=== PATIENT | male | born 1995 | race Caucasian/White ===

== ENCOUNTER 2024-03-06 20:00 | Emergency (ER) | payer MEDICAID, SELFPAY ==
[2024-03-06] VITALS (10 sets, daily range): BP systolic 121–154; BP diastolic 76–88; PULSE 91–119; RESP 16–26; TEMP 36.1–38.3; O2SAT 93–97
--- NOTE | 2024-03-06 20:15 | DI.RAD_ITS ---
Exam(s) XR PORTABLE CHEST AP EXAM: XR PORTABLE CHEST AP CLINICAL HISTORY: cough, fever. TECHNIQUE: 2D digital imaging was performed. COMPARISON: No exams were available for comparison FINDINGS: Single AP portable view. Heart size is upper normal. The mediastinum is not widened. There is significant infiltrate in the right lower lobe posterior basal segment. Left lung is clear. There are no obvious pleural effusions. IMPRESSION: Significant right lower lobe infiltrate. DATA REPOSITORY: RADIATION DOSE DELIVERED:
--- NOTE | 2024-03-06 20:40 | ED.GENADUL_ITS ---
Discharge Plan Disposition Patient Disposition: Home Condition: Stable Discharge Details Clinical Impression: Pneumonia, Hypokalemia Primary Care Provider: Precious,Local ED Provider: Shirley Blakely Home Meds and New Rx's Prescriptions: New amoxicillin 500 mg capsule 1,000 mg PO TID Qty: 56 0RF potassium chloride 20 mEq tablet,ER particles/crystals 20 meq PO DAILY Qty: 7 0RF ondansetron HCl 4 mg tablet 4 mg PO Q8H PRN10 Days Qty: 20 0RF Continued mupirocin 22 GM ointment 1 gm Topical BID Qty: 1 0RF Rx Instructions: 10 days Discharge Instructions Instructions: Hypokalemia, High Potassium Diet, Community-Acquired Pneumonia, Adult (DC) Additional Instructions: Take ibuprofen 600 mg every 8 hours with food for fever control Take Tylenol 500 mg every 4 hours for fever control Take Zofran as needed for nausea and vomiting Stand Alone Forms: Work Release HPI General Date/Time Provider Initiated Documentation: 03/06/24 20:11 . HPI Narrative: This 29-year-old male who presents with fever for the past 36 hours. Patient reports nausea, cough headache, Tmax 103. Has been taking ibuprofen and Tylenol. She denies any urinary symptoms. Denies known sick contacts. Denies illicit drug use. Denies any shortness of breath. Denies tick bites. Denies any arthralgias reports myalgias. Related Data Home Medications ?Medication ?Instructions ?Recorded ?Confirmed mupirocin 2 % topical ointment 1 gm topical BID #1 tube 06/03/16 amoxicillin 500 mg capsule 1,000 mg (2 x 500 mg) PO TID #56 03/06/24 caps ondansetron HCl 4 mg tablet 4 mg PO Q8H PRN 10 days #20 tabs 03/06/24 potassium chloride 20 mEq 20 meq PO DAILY #7 tabs 03/06/24 tablet,extended release(part/cryst) Previous Rx's ?Medication ?Instructions ?Recorded mupirocin 2 % topical ointment 1 gm topical BID #1 tube 06/03/16 amoxicillin 500 mg capsule 1,000 mg (2 x 500 mg) PO TID #56 03/06/24 caps ondansetron HCl 4 mg tablet 4 mg PO Q8H PRN 10 days #20 tabs 03/06/24 potassium chloride 20 mEq 20 meq PO DAILY #7 tabs 03/06/24 tablet,extended release(part/cryst) Allergies Allergy/AdvReac Type Severity Reaction Status Date / Time No Known Allergies Allergy Verified 03/06/24 20:09 General Stated Complaint: Fever DAJUAN: 4 Exam Narrative Exam Narrative: Alert and oriented, no acute distress, pupils equal round reactive to light and accommodation, no meningismus, lungs clear to auscultation, sinus tachycardia, no abdominal tenderness, alert and oriented x 4, no rashes or lesions Course Vital Signs Vital signs: Vital Signs Temperature 38.3 C H 03/06/24 20:04 Pulse 119 H 03/06/24 20:04 Respiratory Rate 16 03/06/24 20:04 Blood Pressure 133/88 03/06/24 20:04 Pulse Oximetry 95 03/06/24 20:04 Temperature 38.3 C H 03/06/24 20:04 Pulse 119 H 03/06/24 20:04 Respiratory Rate 16 03/06/24 20:04 Respiratory Effort Normal 03/06/24 20:09 Blood Pressure 133/88 03/06/24 20:04 Pulse Oximetry 95 03/06/24 20:04 Oxygen Delivery Method Room Air 03/06/24 20:04 Oxygen Flow Rate 0 03/06/24 20:04 Pain Level 4 03/06/24 20:04 Lab/Test Results Lab/Test Results: 03/06/24 20:19 Blood Blood Culture - Pending 03/06/24 20:19 Blood Blood Culture - Pending Medical Decision Making 29-year-old male presenting with fever and tachycardia. Otherwise reportedly healthy. No leukocytosis and labs aside from potassium of 2.9 are reassuring. X-ray per my interpretation has a right lower lobe infiltrate. Will initiate amoxicillin 1 g 3 times daily for 10 days. No meningismus, no respiratory distress, no abdominal tenderness, urinalysis without evidence of infection. Lactate within normal limits, will cancel blood cultures. Patient feeling mar ked improvement, able to tolerate p.o. Zofran for home. Potassium 40 mEq was given in the emergency department will discharge patient on potassium for the next 7 days. Patient is in no respiratory distress and otherwise well in appearance. No meningismus. Return precautions reviewed and patient expressed understanding. Quality:SDOH Health Related Social Needs: No Data to Display PFSH All Active Problems (Updated 03/06/24 @ 21:26 by KENIA Vasquez) Hypokalemia (Acute) Pneumonia (Acute) Social History Smoking/Tobacco Use Status: Never Smoking risk assessment performed?: Yes Drug use: Never Do you feel safe in your relationship?: Yes
[2024-03-06 20:42] LABS: Lactate 0.8 mmol/L (0.6-1.4)
[2024-03-06 20:43] LABS: Abs Immature Grans 0.01 10^3/uL (0.0-0.06); Absolute Basophil Count 0.03 10^3/uL (0.0-0.2); Absolute Eosinophil Count 0.04 10^3/uL (0.0-0.7); Absolute Lymphocyte Count 0.71 10^3/uL (1.2-3.4); Absolute Monocyte Count 0.52 10^3/uL (0.1-0.8); Absolute Neutrophil Count 3.73 10^3/uL (1.2-6.7); Basophils % 0.6 %; Eosinophils % 0.8 %; HCT 43.4 % (40.0-50.0); HGB 15.1 g/dL (13.5-17.5); Immature Grans % 0.2 %; Lymphocytes % 14.1 %; MCH 29.5 pg (27.0-33.0); MCHC 34.8 % (32.0-36.0); MCV 85 fL (80-95); MPV 9.6 fL (8.0-11.0); Monocytes % 10.3 %; Platelet Count 177 10^3/uL (130-400); RBC 5.11 10^6/uL (4.36-5.78); RDW 11.4 % (11.8-14.1); RDW-SD 35.6 fL; WBC 5.04 10^3/uL (4.4-10.8)
[2024-03-06] MEDS: Acetaminophen 500 MG TAB PO (20:43)
[2024-03-06] MEDS: Ibuprofen 200 MG TAB PO (20:43)
[2024-03-06] MEDS: Ondansetron 4 MG/2 ML VIAL IVP (20:44)
[2024-03-06] MEDS: Normal Saline 1,000 ML 1000 ML IV (20:44)
[2024-03-06 20:45] LABS: Bilirubin Negative (Negative); Blood Trace-intact (Negative); Clarity Clear (Clear); Glucose Negative (Negative); Ketones 15 mg/dL (Negative); Leukocyte Esterase Negative (Negative); Nitrite Negative (Negative); Urobilinogen 0.2 mg/dL (Up to 0.2); pH 6.5 (5-8)
[2024-03-06 20:52] LABS: Bacteria Rare HPF (Negative); C & S Indicated? No; Casts Negative LPF (Negative); Crystals Negative HPF (Negative); Epithelial Cells Negative HPF (Negative); Mucus Moderate (Negative); RBC 0-2 HPF (0-2)
[2024-03-06 20:59] LABS: ALT 44 U/L (16-63); AST 29 U/L (15-37); Albumin 3.9 g/dL (3.4-5.0); Alkaline Phosphatase 64 U/L (46-116); Anion Gap 10.3 mmol/L (3-11); BUN 8 mg/dL (7-18); Bilirubin, Total 0.58 mg/dL (0.2-1.0); CO2 26.7 mmol/L (21.0-32.0); CREATININE 1.1 mg/dL (0.70-1.30); Calcium 8.7 mg/dL (8.5-10.1); Chloride 99 mmol/L (98-107); Estimated GFR 94.36 (mL/min/1.73m2); Glucose 131 mg/dL (74-106); Sodium 136 mmol/L (136-145); Total Protein 7.6 g/dL (6.4-8.2)
[2024-03-06 21:01] LABS: Potassium 2.9 mmol/L (3.5-5.1)
[2024-03-06] MEDS: Potassium Chloride 20 MEQ TABCR 40 MEQ PO (21:08)
[2024-03-06 21:12] LABS: COVID-19 PCR Negative (Negative); Influenza A PCR Negative (Negative); Influenza B PCR Negative (Negative); RSV PCR Negative (Negative)
[2024-03-06 21:13] LABS: Source NASOPHARYNX
--- NOTE | 2024-03-06 21:43 | DI.VRAD_ITS ---
PROCEDURE INFORMATION: Exam: XR Chest Exam date and time: 03/06/2024 8:58 PM Age: 29 years old Clinical indication: Fever TECHNIQUE: Imaging protocol: Radiologic exam of the chest. Views: 1 view. Total images: 1 COMPARISON: No relevant prior studies available. FINDINGS: Lungs: Patchy infiltrate at the right lung base. Left lung is clear. Pleural spaces: No pleural effusion or pneumothorax. Heart/Mediastinum: Unremarkable. Bones/joints: Unremarkable. IMPRESSION: Right basilar infiltrate. Dictated and Authenticated by: Jaime Humphreys MD. Ordering:CARLOS Watson MD
[2024-03-06] MEDS: Amoxicillin 500 MG CAP 1000 MG PO (21:48)
[2024-03-06] MEDS: Ondansetron O.D.T. 4 MG TABEF, 3 TABS/BTL PO (21:48)
[2024-03-08 10:51] LABS: Lyme Ab w Rflx to Lyme Confirm Negative (Negative)
[2024-03-10 08:49] LABS: Anaplasma phagocytophilum Negative (Negative); B. miyamotoi PCR Negative (Negative); Babesia divergens/MO-1 Negative (Negative); Babesia duncani Negative (Negative); Babesia microti Negative (Negative); Ehrlichia chaffeensis Negative (Negative); Ehrlichia ewingii/canis Negative (Negative); Ehrlichia muris eauclairensis Negative (Negative)
== END 2024-03-06 21:52 | disposition home or self-care (01) ==
PROVIDERS: Emergency Provider Physician Assistant
DX: J18.9 Pneumonia, unspecified organism (principal); E87.6 Hypokalemia; R50.9 Fever, unspecified; R11.0 Nausea; R52 Pain, unspecified; R05.1 Acute cough
CPT/HCPCS: 80053; 87040; 87637; 87798; 96361; 96374; 99284; 71045; 81003; 81015; 83605; 83735; 85025; 86618; 99283; J2405

== ENCOUNTER 2024-03-10 10:07 | Emergency (ER) | payer MEDICAID, SELFPAY ==
[2024-03-10 10:11] VITALS: BP 124/85; PULSE 93; RESP 18; TEMP 36.6; O2SAT 96
--- NOTE | 2024-03-10 10:24 | ED.GENADUL_ITS ---
Discharge Plan Disposition Patient Disposition: Home Condition: Stable Discharge Details Clinical Impression: Pneumonia Primary Care Provider: Precious,Local ED Provider: Aminah Rodriguez Home Meds and New Rx's Prescriptions: New promethazine 6.25 mg/5 mL syrup 12.5 mg PO Q6H PRN (Reason: cough) Qty: 120 0RF No Action mupirocin 22 GM ointment 1 gm Topical BID Qty: 1 0RF Rx Instructions: 10 days amoxicillin 500 mg capsule 1,000 mg PO TID Qty: 56 0RF potassium chloride 20 mEq tablet,ER particles/crystals 20 meq PO DAILY Qty: 7 0RF ondansetron HCl 4 mg tablet 4 mg PO Q8H PRN10 Days Qty: 20 0RF Discharge Instructions Instructions: Community-acquired pneumonia in adults Additional Instructions: * Continue your antibiotic as prescribed * You can take the prescribed cough medication as needed for cough, this may make you a little bit sleepy so do not combine with alcohol or driving Stand Alone Forms: Work Release HPI General Date/Time Provider Initiated Documentation: 03/10/24 10:10 . Limitations to Documentation: no limitations . Information obtained by: patient and old records reviewed . HPI Narrative: 29-year-old gentleman without significant past medical history presents for evaluation of persistent cough. Patient reports that he was evaluated in the emergency department 4 days ago and diagnosed with pneumonia. He reports that he only asked for 2 days off of work, but states that his recovery has been a little bit slower than what he would like. 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 He states that he is feeling slightly better, definitely not worse. Is having some occasional prior fever at nighttime. He reports that he is having a productive cough. His appetite has improved and he has been compliance with his antibiotic medication Related Data Home Medications ?Medication ?Instructions ?Recorded ?Confirmed mupirocin 2 % topical ointment 1 gm topical BID #1 tube 06/03/16 amoxicillin 500 mg capsule 1,000 mg (2 x 500 mg) PO TID #56 03/06/24 caps ondansetron HCl 4 mg tablet 4 mg PO Q8H PRN 10 days #20 tabs 03/06/24 potassium chloride 20 mEq 20 meq PO DAILY #7 tabs 03/06/24 tablet,extended release(part/cryst) promethazine 6.25 mg/5 mL oral 12.5 mg (10 mL) PO Q6H PRN cough 03/10/24 syrup #120 mL Previous Rx's ?Medication ?Instructions ?Recorded mupirocin 2 % topical ointment 1 gm topical BID #1 tube 06/03/16 amoxicillin 500 mg capsule 1,000 mg (2 x 500 mg) PO TID #56 03/06/24 caps ondansetron HCl 4 mg tablet 4 mg PO Q8H PRN 10 days #20 tabs 03/06/24 potassium chloride 20 mEq 20 meq PO DAILY #7 tabs 03/06/24 tablet,extended release(part/cryst) promethazine 6.25 mg/5 mL oral 12.5 mg (10 mL) PO Q6H PRN cough 03/10/24 syrup #120 mL Allergies Allergy/AdvReac Type Severity Reaction Status Date / Time No Known Allergies Allergy Verified 03/10/24 10:13 General Stated Complaint: Recheck ADJUAN: 4 Exam Narrative Exam Narrative: Review of Systems: All systems reviewed & are unremarkable except as noted in HPI and below Well-developed, no acute distress Afebrile NCAT PERRL, normal conjunctiva RRR no murmur Unlabored respiratory effort no tachypnea or hypoxia, some coarse lung sounds that clear with cough Nondistended abdomen Extremities w/o deformity, no cyanosis, no edema No rashes or lesions. no focal neurologic deficits Appropriate mood and affect Course Vital Signs Vital signs: Vital Signs Temperature 36.6 C 03/10/24 10:11 Pulse 93 H 03/10/24 10:11 Respiratory Rate 18 03/10/24 10:11 Blood Pressure 124/85 03/10/24 10:11 Pulse Oximetry 96 03/10/24 10:11 Temperature 36.6 C 03/10/24 10:11 Temperature Source Temporal Artery Scan 03/10/24 10:11 Pulse 93 H 03/10/24 10:11 Respiratory Rate 18 03/10/24 10:11 Blood Pressure 124/85 03/10/24 10:11 Pulse Oximetry 96 03/10/24 10:11 Medical Decision Making Evaluation of community-acquired pneumonia. Patient diagnosed 4 days ago and has been on antibiotics since that time. His physical examination is reassuring today and he is not having no vital sign derangement. Essentially the patient is here requesting an extension of his work note because he does not feel well enough to return to work at this time. Given his diagnosis I think that this is reasonable and we will give him additional time off. Given his persistent cough that seems to be keeping him up at night, will send Phenergan to the pharmacy. Return precautions advised. Recommend follow-up and reimaging with PCP after symptoms and antibiotic therapy are complete Quality:SDOH Health Related Social Needs: No Data to Display PFSH All Active Problems Hypokalemia (Acute) Pneumonia (Acute) Social History Smoking/Tobacco Use Status: Never Smoking risk assessment performed?: Yes Drug use: Never Do you feel safe in your relationship?: Yes
== END 2024-03-10 11:02 | disposition home or self-care (01) ==
LOC: ER 10:47
PROVIDERS: Emergency Provider Emergency Medicine
DX: J18.9 Pneumonia, unspecified organism (principal); R05.1 Acute cough; R50.9 Fever, unspecified
CPT/HCPCS: 99283